=== PATIENT | male | born 1965 | race Hispanic/Latino ===

== ENCOUNTER 2021-06-05 07:02 | Day surgery (SDC) | payer OTHER ==
[2021-06-05 07:22] VITALS: BMI 34.6
[2021-06-05] MEDS ORDERED: Lidocaine 1% MPF 2 ML VIAL ONE (07:24)
[2021-06-05] MEDS ORDERED: Metoprolol Tartrate 5 MG/5 ML VIAL ONE (07:58)
[2021-06-05] MEDS ORDERED: PROPOFOL 40 ML ONE (08:41)
== END 2021-06-05 09:37 | disposition home or self-care (01) ==
LOC: CSHSDC 07:02
PROVIDERS: ATTEND Internal Medicine Gastroenterology
PROC: 0DJD8ZZ Inspection of Lower Intestinal Tract, Via Natural or Artificial Opening Endoscopic (ICD-10-PCS; principal; 2021-06-05)
DX: Z12.11 Encounter for screening for malignant neoplasm of colon (principal); K57.30 Diverticulosis of large intestine without perforation or abscess without bleeding; K64.9 Unspecified hemorrhoids
CPT/HCPCS: J2704